=== PATIENT | female | born 1950 | race Caucasian/White ===

== ENCOUNTER 2024-01-25 20:17 | Inpatient (IN) | payer OTHER, MEDICAID ==
[~2024-01-25] VITALS: Ht 152.4 cm; Wt 113.4 kg
[2024-01-25 20:20] VITALS: BP 110/64; PULSE 84; RESP 18; TEMP 98.4; O2SAT 98
[2024-01-25] MEDS: NACL 0.9% 2,000 ML IV ONE (21:01)
[2024-01-25] MEDS ORDERED: cefTRIAXone 1,000 MG VIAL ONE (21:02)
[2024-01-25] MEDS ORDERED: ACETAMINOPHEN 650 MG SUPP RC ONE (21:16)
[2024-01-25 21:19] LABS: BASOPHILS % (AUTO) 0.2 % (0.0-2.0); EOSINOPHILS % (AUTO) 0.1 % (0.0-4.0); HEMATOCRIT 27.3 % (36-48); HEMOGLOBIN 9.2 g/dL (12.0-16.0); LYMPHOCYTES # (AUTO) 0.7 K/uL (2.5-16.5); LYMPHOCYTES % (AUTO) 3.9 % (20.5-51.1); MEAN CORPUSCULAR HEMOGLOBIN 33 pg (27-31); MEAN CORPUSCULAR HGB CONC 34 g/dL (33-37); MEAN CORPUSCULAR VOLUME 99.6 fL (80-94); MONOCYTES # (AUTO) 1.7 K/uL (0.8-1.0); MONOCYTES % (AUTO) 9.5 % (1.7-9.3); NEUTROPHILS % (AUTO) 86.3 % (42.2-75.2); PLATELET COUNT (AUTO) 74 K/uL (140-450); RED BLOOD CELL COUNT(AUTO) 2.74 MIL/uL (4.20-5.40); WHITE BLOOD COUNT (AUTO) 17.4 K/uL (4.8-10.8)
[2024-01-25] MEDS: ACETAMINOPHEN 650 MG SUPP RC ONE (21:26)
[2024-01-25 21:37] LABS: ANION GAP 8.7 (8-16); CALCIUM 7.1 mg/dL (8.5-10.1); CHLORIDE 102 mmol/L (98-107); CREATININE 1.2 mg/dL (0.6-1.3); GLUCOSE 117 mg/dL (74-106); POTASSIUM 3.7 mmol/L (3.5-5.1); SODIUM SERUM 135 mmol/L (136-145); UREA NITROGEN, BLOOD 19 mg/dL (7-18)
[2024-01-25 21:40] LABS: APPEARANCE,URINE CLEAR (CLEAR); BILIRUBIN,URINE 2+ (NEGATIVE); BLOOD, URINE 3+ (NEGATIVE); COLOR,URINE YELLOW (YELLOW); LEUKOCYTE ESTERASE ,URINE 1+ (NEGATIVE); NITRITE, URINE POSITIVE (NEGATIVE); PH,URINE 5.5 (5.0-9.0); PROTEIN,URINE TRACE (NEGATIVE); UGLUCOSE TRACE (NEGATIVE)
[2024-01-25 21:46] LABS: ICTOTEST NEGATIVE (NEGATIVE)
[2024-01-25 21:46] LABS: ALANINE AMINOTRANSFERASE 40 U/L (12-78); ALBUMIN 1.4 g/dL (3.4-5.0); ALKALINE PHOSPHATASE 137 U/L (50-136); ASPARTATE AMINOTRANSFERASE 82 U/L (15-37); BILIRUBIN,DIRECT 1.4 mg/dL (0.0-0.3); CREATINE KINASE, TOTAL 106 U/L (26-192); TOTAL BILIRUBIN 3.8 mg/dL (0.0-1.0); TOTAL PROTEIN, SERUM 5.4 g/dL (6.4-8.2)
[2024-01-25 21:48] LABS: BACTERIA,URINE >30 (MANY) /HPF (None Seen); RBC,URINE 11-20 (MOD) /HPF (0-5); SQUAMOUS EPITHELIAL CELL,UR 4-10 (MOD) /LPF (0-3 (FEW))
[2024-01-25 21:50] LABS: INR 2.27 (0.8-1.2); PARTIAL THROMBOPLASTIN TIME 38.6 secs (22-35.6); PROTHROMBIN TIME 22.9 secs (10.8-13.4)
[2024-01-25 21:55] LABS: LACTIC ACID 3.5 mmol/L (0.4-2.0)
[2024-01-25 22:05] LABS: FLU A ANTIGEN negative (NEGATIVE); FLU B ANTIGEN NEGATIVE (NEGATIVE)
[2024-01-25] MEDS: NACL 0.9% 1,000 ML IV ONE (23:07)
[2024-01-26] MEDS ORDERED: ZOLPIDEM 5 MG TAB PO PRN
[2024-01-26] MEDS ORDERED: HYDROcodone/APAP 5/325 MG 1 TAB TAB PO PRN
[2024-01-26] MEDS ORDERED: ONDANSETRON 4 MG/2 ML VIAL IVP PRN
[2024-01-26] MEDS ORDERED: LORazepam 1 MG TAB PO PRN
[2024-01-26] MEDS ORDERED: LACT-85 PO (06:02)
[2024-01-26] MEDS ORDERED: RIFA200T4 PO (06:03)
[2024-01-26] MEDS ORDERED: FURO-572 PO (06:03)
[2024-01-26] MEDS ORDERED: OXYB15TA2 PO (06:03)
[2024-01-26] MEDS ORDERED: LOSA-272 PO (06:03)
[2024-01-26] MEDS: BENZONATATE 100 MG CAPLF PO PRN (07:01)
[2024-01-26 07:06] LABS: BASOPHILS % (AUTO) 0.1 % (0.0-2.0); EOSINOPHILS % (AUTO) 0.2 % (0.0-4.0); HEMATOCRIT 28.2 % (36-48); HEMOGLOBIN 9.6 g/dL (12.0-16.0); LYMPHOCYTES # (AUTO) 0.9 K/uL (2.5-16.5); LYMPHOCYTES % (AUTO) 5.9 % (20.5-51.1); MEAN CORPUSCULAR HEMOGLOBIN 34 pg (27-31); MEAN CORPUSCULAR HGB CONC 34 g/dL (33-37); MONOCYTES # (AUTO) 1.6 K/uL (0.8-1.0); MONOCYTES % (AUTO) 11.2 % (1.7-9.3); NEUTROPHILS # (AUTO) 12.1 K/uL (1.8-7.7); NEUTROPHILS % (AUTO) 82.6 % (42.2-75.2); RED BLOOD CELL COUNT(AUTO) 2.82 MIL/uL (4.20-5.40); RED CELL DISTRIBUTION WIDTH 18.2 % (11.6-13.7); WHITE BLOOD COUNT (AUTO) 14.6 K/uL (4.8-10.8)
[2024-01-26 07:46] LABS: PLATELET COUNT (AUTO) 66 K/uL (140-450)
[2024-01-26 07:56] LABS: ALANINE AMINOTRANSFERASE 42 U/L (12-78); ALBUMIN 1.4 g/dL (3.4-5.0); ALKALINE PHOSPHATASE 137 U/L (50-136); ASPARTATE AMINOTRANSFERASE 82 U/L (15-37); CALCIUM 6.7 mg/dL (8.5-10.1); CARBON DIOXIDE 24.4 mmol/L (21-32); CHLORIDE 103 mmol/L (98-107); GLUCOSE 88 mg/dL (74-106); POTASSIUM 3.4 mmol/L (3.5-5.1); SODIUM SERUM 136 mmol/L (136-145); TOTAL BILIRUBIN 3.5 mg/dL (0.0-1.0); TOTAL PROTEIN, SERUM 5.6 g/dL (6.4-8.2); UREA NITROGEN, BLOOD 21 mg/dL (7-18)
[2024-01-26 08:00] VITALS: BP 121/58; PULSE 77; TEMP 98.2; O2SAT 96
[2024-01-26 08:10] VITALS: PULSE 97
[2024-01-26] MEDS: DOCUSATE SODIUM 100 MG GELCAP PO SCH (08:54)
[2024-01-26] MEDS ORDERED: VANCOMYCIN PER PHARMACY MC PRN ×2 (10:15→20:20)
[2024-01-26] MEDS: VANCOMYCIN 1.25GM PREMIX 250 ML IV SCH (11:52)
[2024-01-26 12:00] VITALS: BP 96/46; PULSE 74; PULSE 75; TEMP 98.3; O2SAT 91
[2024-01-26] MEDS: POTASSIUM CHLORIDE 10 MEQ TABER PO SCH (15:37)
[2024-01-26 16:00] VITALS: BP 108/48; PULSE 70; PULSE 71; TEMP 98.5; O2SAT 97
[2024-01-26 20:00] VITALS: BP 99/37; PULSE 65; PULSE 70; RESP 18; TEMP 98.2; O2SAT 97
[2024-01-27] VITALS (7 sets, daily range): BP systolic 95–112; BP diastolic 38–61; PULSE 61–69; RESP 18; TEMP 97.3–98.2; O2SAT 94–98
[2024-01-27] MEDS ORDERED: ONDANSETRON 4 MG/2 ML VIAL IVP PRN (02:45)
[2024-01-27] MEDS ORDERED: ACETAMINOPHEN 325 MG TAB PO PRN (02:45)
[2024-01-27] MEDS: NACL 0.9% 1,000 ML IV SCH (03:43)
[2024-01-27] MEDS: LACTULOSE 20 GM/30 ML UDC PO SCH (04:25)
[2024-01-27 06:06] LABS: INR 1.99 (0.8-1.2); PARTIAL THROMBOPLASTIN TIME 39.7 secs (22-35.6); PROTHROMBIN TIME 20.3 secs (10.8-13.4)
[2024-01-27 06:08] LABS: HEMATOCRIT 27.1 % (36-48); HEMOGLOBIN 9.3 g/dL (12.0-16.0); LACTIC ACID 1.4 mmol/L (0.4-2.0); MEAN CORPUSCULAR HEMOGLOBIN 34 pg (27-31); MEAN CORPUSCULAR HGB CONC 34 g/dL (33-37); MEAN CORPUSCULAR VOLUME 99.4 fL (80-94); PLATELET COUNT (AUTO) 70 K/uL (140-450); RED BLOOD CELL COUNT(AUTO) 2.73 MIL/uL (4.20-5.40); RED CELL DISTRIBUTION WIDTH 17.8 % (11.6-13.7); WHITE BLOOD COUNT (AUTO) 11.9 K/uL (4.8-10.8)
[2024-01-27] MEDS: HYDROcodone/APAP 7.5/325 MG 1 TAB PO PRN (06:24)
[2024-01-27 06:58] LABS: ALKALINE PHOSPHATASE 125 U/L (50-136); ANION GAP 10.7 (8-16); CALCIUM 6.7 mg/dL (8.5-10.1); CARBON DIOXIDE 26.2 mmol/L (21-32); CHLORIDE 99 mmol/L (98-107); CREATININE 0.8 mg/dL (0.6-1.3); GLUCOSE 75 mg/dL (74-106); POTASSIUM 3.9 mmol/L (3.5-5.1); SODIUM SERUM 132 mmol/L (136-145); TOTAL BILIRUBIN 2.9 mg/dL (0.0-1.0); UREA NITROGEN, BLOOD 24 mg/dL (7-18)
[2024-01-27 06:59] LABS: ALANINE AMINOTRANSFERASE 33 U/L (12-78); ALBUMIN 1.2 g/dL (3.4-5.0); ASPARTATE AMINOTRANSFERASE 66 U/L (15-37); TOTAL PROTEIN, SERUM 5.5 g/dL (6.4-8.2)
[2024-01-27 07:00] LABS: CHOL/HDL RATIO 4.2 (1-4.5); CHOLESTEROL 75 mg/dL (<200); HDL CHOLESTEROL 18 mg/dL (40-60); LDL (CALC) 48 mg/dL (60-100); PHOSPHORUS 2.2 mg/dL (2.5-4.9); TRIGLYCERIDES 49 mg/dL (30-150)
[2024-01-27 07:01] LABS: FREE T4 (FREE THYROXINE) 1.85 ng/dL (0.76-1.46); THYROID STIMULATING HORMONE 2.28 uIU/mL (0.34-3.74)
[2024-01-27 07:45] LABS: AMYLASE 26 U/L (25-115); LIPASE 37 U/L (16-77)
[2024-01-27 07:50] LABS: LYMPHOCYTES % (MANUAL) 9 % (20-46); MONOCYTES % (MANUAL) 10 % (5-12)
[2024-01-27 07:51] LABS: PLATELET ESTIMATE DECREASED
[2024-01-27] MEDS: DOCUSATE SODIUM 100 MG GELCAP PO SCH (09:00)
[2024-01-27] MEDS: OXYBUTYNIN 5 MG TAB PO SCH (09:00)
[2024-01-27] MEDS: PANTOPRAZOLE 40 MG INJ VIAL IVP SCH (09:00)
[2024-01-27] MEDS: LOSARTAN 50 MG TAB PO SCH (09:00)
[2024-01-27] MEDS: FUROSEMIDE 20 MG TAB PO SCH (09:00)
[2024-01-27] MEDS: RIFAXIMIN 550 MG TAB PO SCH (09:00)
[2024-01-28 05:09] VITALS: BP 102/44; PULSE 85; RESP 18; TEMP 97.5; O2SAT 98
[2024-01-28 08:00] VITALS: BP 112/49; PULSE 64; RESP 18; TEMP 97; O2SAT 100
[2024-01-28] MEDS: VANCOMYCIN 1,000 MG in DEXTROSE 5% 250 ML IV SCH (09:43)
[2024-01-28 11:47] LABS: BASOPHILS # (AUTO) 0.1 K/uL (0.00-0.22); BASOPHILS % (AUTO) 0.4 % (0.0-2.0); EOSINOPHILS # (AUTO) 0.6 K/uL (0-0.4); EOSINOPHILS % (AUTO) 4.8 % (0.0-4.0); HEMATOCRIT 28.1 % (36-48); HEMOGLOBIN 9.6 g/dL (12.0-16.0); LYMPHOCYTES # (AUTO) 1.6 K/uL (2.5-16.5); LYMPHOCYTES % (AUTO) 13.1 % (20.5-51.1); MEAN CORPUSCULAR HEMOGLOBIN 34 pg (27-31); MEAN CORPUSCULAR HGB CONC 34 g/dL (33-37); MEAN CORPUSCULAR VOLUME 100.1 fL (80-94); MONOCYTES # (AUTO) 1.2 K/uL (0.8-1.0); MONOCYTES % (AUTO) 9.8 % (1.7-9.3); NEUTROPHILS % (AUTO) 71.9 % (42.2-75.2); PLATELET COUNT (AUTO) 77 K/uL (140-450); RED CELL DISTRIBUTION WIDTH 17.7 % (11.6-13.7); WHITE BLOOD COUNT (AUTO) 12.4 K/uL (4.8-10.8)
[2024-01-28 12:00] VITALS: BP 112/49; PULSE 64; RESP 18; TEMP 97; O2SAT 100
[2024-01-28 12:15] LABS: ALANINE AMINOTRANSFERASE 31 U/L (12-78); ALBUMIN 1.2 g/dL (3.4-5.0); ALKALINE PHOSPHATASE 128 U/L (50-136); ANION GAP 8.8 (8-16); ASPARTATE AMINOTRANSFERASE 59 U/L (15-37); CALCIUM 6.5 mg/dL (8.5-10.1); CARBON DIOXIDE 26.9 mmol/L (21-32); CHLORIDE 101 mmol/L (98-107); CREATININE 0.7 mg/dL (0.6-1.3); GLUCOSE 98 mg/dL (74-106); POTASSIUM 3.7 mmol/L (3.5-5.1); SODIUM SERUM 133 mmol/L (136-145); TOTAL BILIRUBIN 3.1 mg/dL (0.0-1.0); TOTAL PROTEIN, SERUM 5.4 g/dL (6.4-8.2); UREA NITROGEN, BLOOD 18 mg/dL (7-18)
[2024-01-28 12:17] LABS: ALBUMIN 1.2 g/dL (3.4-5.0); TOTAL BILIRUBIN 3.5 mg/dL (0.0-1.0); TOTAL PROTEIN, SERUM 5.4 g/dL (6.4-8.2)
[2024-01-28 15:26] VITALS: O2SAT 93
[2024-01-28 16:30] VITALS: BP 113/48; PULSE 67; RESP 18; TEMP 98.5; O2SAT 100
[2024-01-28 20:00] VITALS: BP 111/46; PULSE 68; RESP 21; TEMP 97.8; O2SAT 97
[2024-01-29 08:00] VITALS: BP 115/50; PULSE 71; RESP 21; TEMP 97; O2SAT 97
[2024-01-29] MEDS ORDERED: WOUND CARE PREPARATION 178 ML SPR TP PRN (11:05)
[2024-01-29] MEDS: Z-GUARD PASTE TP SCH (13:11)
[2024-01-29] MEDS ORDERED: HYDRAGUARD CREAM TP PRN (14:00)
[2024-01-29] MEDS ORDERED: FOAM DRESSING TP PRN (14:00)
[2024-01-29] MEDS ORDERED: NON ADHERENT DRESSING TP PRN (14:00)
[2024-01-29 16:52] VITALS: O2SAT 94
[2024-01-29 20:00] VITALS: BP 94/40; RESP 21; TEMP 97.8; O2SAT 96
[2024-01-29 20:42] LABS: ALANINE AMINOTRANSFERASE 39 U/L (12-78); ALBUMIN 1.2 g/dL (3.4-5.0); ALKALINE PHOSPHATASE 157 U/L (50-136); ANION GAP 9.9 (8-16); ASPARTATE AMINOTRANSFERASE 65 U/L (15-37); CALCIUM 6.7 mg/dL (8.5-10.1); CARBON DIOXIDE 24.8 mmol/L (21-32); CHLORIDE 101 mmol/L (98-107); CREATININE 0.7 mg/dL (0.6-1.3); GLUCOSE 92 mg/dL (74-106); POTASSIUM 3.7 mmol/L (3.5-5.1); SODIUM SERUM 132 mmol/L (136-145); TOTAL BILIRUBIN 3.1 mg/dL (0.0-1.0); TOTAL PROTEIN, SERUM 5.7 g/dL (6.4-8.2); UREA NITROGEN, BLOOD 14 mg/dL (7-18)
[2024-01-29] MEDS: metroNIDAZOLE 500 MG/NS PREMIX 100 ML IV SCH (21:30)
[2024-01-30] MEDS: HYDRAGUARD CREAM TP SCH (02:00)
[2024-01-30 08:00] VITALS: BP 97/37; RESP 15; TEMP 97.8; O2SAT 65
[2024-01-30 09:46] LABS: BASOPHILS # (AUTO) 0.1 K/uL (0.00-0.22); BASOPHILS % (AUTO) 0.9 % (0.0-2.0); EOSINOPHILS # (AUTO) 0.6 K/uL (0-0.4); HEMATOCRIT 28.9 % (36-48); LYMPHOCYTES # (AUTO) 1.6 K/uL (2.5-16.5); LYMPHOCYTES % (AUTO) 15.5 % (20.5-51.1); MEAN CORPUSCULAR HEMOGLOBIN 35 pg (27-31); MEAN CORPUSCULAR HGB CONC 35 g/dL (33-37); MEAN CORPUSCULAR VOLUME 101.1 fL (80-94); MONOCYTES # (AUTO) 1.1 K/uL (0.8-1.0); MONOCYTES % (AUTO) 10.2 % (1.7-9.3); NEUTROPHILS % (AUTO) 67.4 % (42.2-75.2); PLATELET COUNT (AUTO) 73 K/uL (140-450); RED BLOOD CELL COUNT(AUTO) 2.86 MIL/uL (4.20-5.40); RED CELL DISTRIBUTION WIDTH 17.9 % (11.6-13.7); WHITE BLOOD COUNT (AUTO) 10.4 K/uL (4.8-10.8)
[2024-01-30 10:54] LABS: ALANINE AMINOTRANSFERASE 25 U/L (12-78); ALBUMIN 1.1 g/dL (3.4-5.0); ALKALINE PHOSPHATASE 148 U/L (50-136); ANION GAP 6.2 (8-16); ASPARTATE AMINOTRANSFERASE 59 U/L (15-37); CALCIUM 6.8 mg/dL (8.5-10.1); CARBON DIOXIDE 27.5 mmol/L (21-32); CHLORIDE 103 mmol/L (98-107); CREATININE 0.7 mg/dL (0.6-1.3); GLUCOSE 73 mg/dL (74-106); POTASSIUM 3.7 mmol/L (3.5-5.1); SODIUM SERUM 133 mmol/L (136-145); TOTAL BILIRUBIN 2.3 mg/dL (0.0-1.0); TOTAL PROTEIN, SERUM 5.2 g/dL (6.4-8.2); UREA NITROGEN, BLOOD 13 mg/dL (7-18)
[2024-01-30] MEDS: FOAM DRESSING TP SCH (13:00)
[2024-01-30] MEDS: NON ADHERENT DRESSING TP SCH (13:00)
[2024-01-30] MEDS: NACL 0.9% 1,000 ML IV SCH (15:50)
[2024-01-30] MEDS ORDERED: NACL 0.9% 2,000 ML IV SCH (15:50)
[2024-01-30 20:00] VITALS: BP 128/49; PULSE 68; RESP 18; TEMP 97.4; TEMP 97.8; O2SAT 98
[2024-01-31 04:00] VITALS: BP 127/49; PULSE 70; RESP 18; TEMP 97.2; O2SAT 97
[2024-01-31 08:00] VITALS: BP 101/41; PULSE 69; RESP 18; TEMP 98; O2SAT 96
[2024-01-31 08:24] LABS: BASOPHILS # (AUTO) 0.1 K/uL (0.00-0.22); EOSINOPHILS # (AUTO) 0.5 K/uL (0-0.4); EOSINOPHILS % (AUTO) 6.2 % (0.0-4.0); HEMATOCRIT 28.6 % (36-48); HEMOGLOBIN 9.8 g/dL (12.0-16.0); LYMPHOCYTES # (AUTO) 1.3 K/uL (2.5-16.5); LYMPHOCYTES % (AUTO) 16.4 % (20.5-51.1); MEAN CORPUSCULAR HEMOGLOBIN 35 pg (27-31); MEAN CORPUSCULAR HGB CONC 34 g/dL (33-37); MEAN CORPUSCULAR VOLUME 101.7 fL (80-94); MONOCYTES % (AUTO) 12.1 % (1.7-9.3); NEUTROPHILS # (AUTO) 5.3 K/uL (1.8-7.7); NEUTROPHILS % (AUTO) 64.3 % (42.2-75.2); PLATELET COUNT (AUTO) 90 K/uL (140-450); RED BLOOD CELL COUNT(AUTO) 2.81 MIL/uL (4.20-5.40); WHITE BLOOD COUNT (AUTO) 8.2 K/uL (4.8-10.8)
[2024-01-31 08:45] LABS: ALANINE AMINOTRANSFERASE 26 U/L (12-78); ALBUMIN 1.1 g/dL (3.4-5.0); ALKALINE PHOSPHATASE 144 U/L (50-136); ANION GAP 10.2 (8-16); ASPARTATE AMINOTRANSFERASE 55 U/L (15-37); CALCIUM 6.5 mg/dL (8.5-10.1); CARBON DIOXIDE 24.4 mmol/L (21-32); CHLORIDE 105 mmol/L (98-107); CREATININE 0.6 mg/dL (0.6-1.3); GLUCOSE 77 mg/dL (74-106); POTASSIUM 3.6 mmol/L (3.5-5.1); SODIUM SERUM 136 mmol/L (136-145); TOTAL BILIRUBIN 2.4 mg/dL (0.0-1.0); TOTAL PROTEIN, SERUM 5.3 g/dL (6.4-8.2); UREA NITROGEN, BLOOD 11 mg/dL (7-18)
[2024-01-31] MEDS: MORPHINE SULFATE 2 MG/ML SYR IVP PRN (16:01)
[2024-01-31] MEDS: FUROSEMIDE 40 MG/4 ML VIAL IVP ONE ×3 (16:20→20:37)
[2024-01-31 20:00] VITALS: BP 115/51; PULSE 76; RESP 18; TEMP 98.2; O2SAT 95
[2024-01-31 20:22] VITALS: PULSE 76; RESP 18; O2SAT 96
[2024-01-31 20:26] VITALS: TEMP 98
[2024-01-31] MEDS: RIFAXIMIN 550 MG TAB PO SCH (20:36)
[2024-02-01] VITALS: BP 107/40; PULSE 66; RESP 18; TEMP 97.8; O2SAT 95
[2024-02-01 06:46] LABS: BASOPHILS # (AUTO) 0.2 K/uL (0.00-0.22); BASOPHILS % (AUTO) 2.3 % (0.0-2.0); EOSINOPHILS # (AUTO) 0.5 K/uL (0-0.4); HEMATOCRIT 26.8 % (36-48); HEMOGLOBIN 9.2 g/dL (12.0-16.0); LYMPHOCYTES # (AUTO) 1.3 K/uL (2.5-16.5); LYMPHOCYTES % (AUTO) 18.2 % (20.5-51.1); MEAN CORPUSCULAR HEMOGLOBIN 35 pg (27-31); MEAN CORPUSCULAR HGB CONC 34 g/dL (33-37); MEAN CORPUSCULAR VOLUME 101.7 fL (80-94); MONOCYTES # (AUTO) 0.9 K/uL (0.8-1.0); MONOCYTES % (AUTO) 12.6 % (1.7-9.3); NEUTROPHILS # (AUTO) 4.3 K/uL (1.8-7.7); NEUTROPHILS % (AUTO) 59.9 % (42.2-75.2); PLATELET COUNT (AUTO) 108 K/uL (140-450); RED BLOOD CELL COUNT(AUTO) 2.63 MIL/uL (4.20-5.40); RED CELL DISTRIBUTION WIDTH 17.7 % (11.6-13.7); WHITE BLOOD COUNT (AUTO) 7.2 K/uL (4.8-10.8)
[2024-02-01 07:16] LABS: ALANINE AMINOTRANSFERASE 26 U/L (12-78); ALBUMIN 1.1 g/dL (3.4-5.0); ALKALINE PHOSPHATASE 130 U/L (50-136); ANION GAP 10.8 (8-16); ASPARTATE AMINOTRANSFERASE 56 U/L (15-37); CALCIUM 6.5 mg/dL (8.5-10.1); CARBON DIOXIDE 24.8 mmol/L (21-32); CHLORIDE 103 mmol/L (98-107); CREATININE 0.6 mg/dL (0.6-1.3); GLUCOSE 84 mg/dL (74-106); POTASSIUM 3.6 mmol/L (3.5-5.1); SODIUM SERUM 135 mmol/L (136-145); TOTAL BILIRUBIN 2.4 mg/dL (0.0-1.0); TOTAL PROTEIN, SERUM 5.3 g/dL (6.4-8.2); UREA NITROGEN, BLOOD 11 mg/dL (7-18)
[2024-02-01 08:00] VITALS: BP 113/49; PULSE 69; PULSE 72; RESP 18; TEMP 98; TEMP 98.8; O2SAT 96; O2SAT 98
[2024-02-01] MEDS ORDERED: ROC2I IV (12:46)
[2024-02-01 16:00] VITALS: BP 97/41; PULSE 18; RESP 18; TEMP 98; O2SAT 97
[2024-02-01 17:51] VITALS: BP 97/52; PULSE 72; RESP 18; TEMP 98.6
== END 2024-02-01 19:10 | DRG 871 ==
LOC: MED 20:17 → MTU 01-26
DX: A40.1 Sepsis due to streptococcus, group B (principal); E43 Unspecified severe protein-calorie malnutrition; G93.41 Metabolic encephalopathy; J18.9 Pneumonia, unspecified organism; I50.43 Acute on chronic combined systolic (congestive) and diastolic (congestive) heart failure; I21.A1 Myocardial infarction type 2; N39.0 Urinary tract infection, site not specified; Z68.42 Body mass index [BMI] 45.0-49.9, adult; I11.0 Hypertensive heart disease with heart failure; D69.6 Thrombocytopenia, unspecified; Z20.822 Contact with and (suspected) exposure to COVID-19; F03.90 Unspecified dementia, unspecified severity, without behavioral disturbance, psychotic disturbance, mood disturbance, and anxiety; E66.9 Obesity, unspecified; K74.60 Unspecified cirrhosis of liver; Z79.899 Other long term (current) drug therapy; D63.8 Anemia in other chronic diseases classified elsewhere
CPT/HCPCS: 36415; 71045; 76700; 76770; 78223; 78445; 80048; 80053; 80076; 80202; 81001; 82140; 82150; 82550; 83036; 83605; 83690; 83735; 83880; 84100; 84439; 84443; 84484; 85025; 85610; 85730; 87040; 87081; 87086; 87186; 93005; 96374; 97110; 97112; 97530; 99285; C9113; J0696; J1940; J2270; J3370; J3372; J3490; J7060; Q0092

== ENCOUNTER 2024-02-23 15:39 | Inpatient (IN) | payer OTHER, MEDICAID ==
[~2024-02-23] VITALS: Ht 157.5 cm; Wt 98.2 kg
[~2024-02-23 15:39] MED LIST: FURO-572 PO; LACT-85 PO; LOSA-272 PO; OXYB15TA2 PO; RIFA200T4 PO; ROC2I IV
[2024-02-23 16:04] VITALS: BP 112/63; PULSE 75; RESP 18; TEMP 98.3; O2SAT 100
[2024-02-23 16:35] VITALS: O2SAT 96
[2024-02-23 17:12] LABS: BASOPHILS % (AUTO) 0.2 % (0.0-2.0); EOSINOPHILS # (AUTO) 0.4 K/uL (0-0.4); EOSINOPHILS % (AUTO) 5.5 % (0.0-4.0); HEMATOCRIT 29.1 % (36-48); HEMOGLOBIN 9.8 g/dL (12.0-16.0); LYMPHOCYTES # (AUTO) 1.6 K/uL (2.5-16.5); LYMPHOCYTES % (AUTO) 19.3 % (20.5-51.1); MEAN CORPUSCULAR HEMOGLOBIN 36 pg (27-31); MEAN CORPUSCULAR HGB CONC 34 g/dL (33-37); MONOCYTES # (AUTO) 0.7 K/uL (0.8-1.0); MONOCYTES % (AUTO) 8.8 % (1.7-9.3); NEUTROPHILS # (AUTO) 5.4 K/uL (1.8-7.7); NEUTROPHILS % (AUTO) 66.2 % (42.2-75.2); PLATELET COUNT (AUTO) 86 K/uL (140-450); RED CELL DISTRIBUTION WIDTH 22.3 % (11.6-13.7); WHITE BLOOD COUNT (AUTO) 8.2 K/uL (4.8-10.8)
[2024-02-23 17:28] LABS: INR 2.16 (0.8-1.2); PARTIAL THROMBOPLASTIN TIME 37.9 secs (22-35.6); PROTHROMBIN TIME 21.8 secs (10.8-13.4)
[2024-02-23 17:38] LABS: ANION GAP 7.7 (8-16); CALCIUM 7.6 mg/dL (8.5-10.1); CARBON DIOXIDE 29.7 mmol/L (21-32); CHLORIDE 107 mmol/L (98-107); CREATININE 0.6 mg/dL (0.6-1.3); GLUCOSE 84 mg/dL (74-106); POTASSIUM 3.4 mmol/L (3.5-5.1); SODIUM SERUM 141 mmol/L (136-145); UREA NITROGEN, BLOOD 9 mg/dL (7-18)
[2024-02-23 17:40] LABS: LACTIC ACID 2.1 mmol/L (0.4-2.0)
[2024-02-23 17:41] LABS: ALANINE AMINOTRANSFERASE 25 U/L (12-78); ALBUMIN 1.2 g/dL (3.4-5.0); ALKALINE PHOSPHATASE 160 U/L (50-136); ASPARTATE AMINOTRANSFERASE 63 U/L (15-37); BILIRUBIN,DIRECT 1.7 mg/dL (0.0-0.3); CREATINE KINASE, TOTAL 74 U/L (26-192); LIPASE 41 U/L (16-77); TOTAL BILIRUBIN 4.9 mg/dL (0.0-1.0); TOTAL PROTEIN, SERUM 6.5 g/dL (6.4-8.2)
[2024-02-23] MEDS: PIPERACILLIN/TAZOBACTAM 3.375 GM in DEXTROSE 5% 50 ML IV ONE (18:30)
[2024-02-23 18:34] VITALS: O2SAT 96
[2024-02-23] MEDS ORDERED: PIPERACILLIN/TAZOBACTAM 3.375 GM VIAL IV ONE (18:37)
[2024-02-23 19:38] LABS: BILIRUBIN,URINE 2+ (NEGATIVE); BLOOD, URINE 3+ (NEGATIVE); COLOR,URINE YELLOW (YELLOW); LEUKOCYTE ESTERASE ,URINE 3+ (NEGATIVE); NITRITE, URINE POSITIVE (NEGATIVE); PROTEIN,URINE 2+ (NEGATIVE); UGLUCOSE TRACE (NEGATIVE); UROBILINOGEN,URINE >=8.0 EU/dL (0.2 - 1)
[2024-02-23 19:41] LABS: APPEARANCE,URINE SLIGHTLY CLOUDY (CLEAR)
[2024-02-23 19:48] LABS: BACTERIA,URINE 3+ /HPF (None Seen); ICTOTEST POSITIVE (NEGATIVE); RBC,URINE 20-50 /HPF (0-5); SQUAMOUS EPITHELIAL CELL,UR 4-10 (MOD) /LPF (0-3 (FEW)); WBC,URINE 16-25 (MOD) /HPF (0-5)
[2024-02-23 19:49] LABS: MUCUS,URINE None Seen /LPF (None Seen)
[2024-02-23] MEDS: NACL 0.9% 1,000 ML IV SCH (23:05)
[2024-02-23] MEDS: PIPERACILLIN/TAZOBACTAM 2.25 GM in DEXTROSE 5% 50 ML IV SCH (23:06)
[2024-02-24] VITALS (11 sets, daily range): BP systolic 106–148; BP diastolic 40–71; PULSE 70–83; RESP 18–22; TEMP 97.2–98; O2SAT 94–100
[2024-02-24 06:36] LABS: HEMATOCRIT 26.4 % (36-48); HEMOGLOBIN 9.1 g/dL (12.0-16.0); MEAN CORPUSCULAR HEMOGLOBIN 37 pg (27-31); MEAN CORPUSCULAR HGB CONC 35 g/dL (33-37); MEAN CORPUSCULAR VOLUME 107.4 fL (80-94); PLATELET COUNT (AUTO) 75 K/uL (140-450); RED BLOOD CELL COUNT(AUTO) 2.46 MIL/uL (4.20-5.40); RED CELL DISTRIBUTION WIDTH 22.3 % (11.6-13.7); WHITE BLOOD COUNT (AUTO) 7.6 K/uL (4.8-10.8)
[2024-02-24 06:56] LABS: ANION GAP 7.6 (8-16); CALCIUM 7.3 mg/dL (8.5-10.1); CARBON DIOXIDE 30.5 mmol/L (21-32); CHLORIDE 108 mmol/L (98-107); CREATININE 0.7 mg/dL (0.6-1.3); GLUCOSE 63 mg/dL (74-106); POTASSIUM 3.1 mmol/L (3.5-5.1); SODIUM SERUM 143 mmol/L (136-145); UREA NITROGEN, BLOOD 10 mg/dL (7-18)
[2024-02-24 08:28] LABS: BASOPHILS % (MANUAL) 0 % (0-2); EOSINOPHILS % (MANUAL) 6 % (0-4); LYMPHOCYTES % (MANUAL) 17 % (20-46); METAMYELOCYTES % 0 % (0-0); MONOCYTES % (MANUAL) 11 % (5-12); MYELOCYTES % 0 % (0-0); PROMYELOCYTES % 0 % (0-0)
[2024-02-24 08:29] LABS: BLASTS, MANUAL % 0 % (0-0)
[2024-02-24] MEDS: KCL 20 MEQ IN 100 mL PREMIX 200 ML IV ONE (10:41)
[2024-02-24] MEDS: PIPERACILLIN/TAZOBACTAM 3.375 GM in DEXTROSE 5% 50 ML IV SCH (14:53)
[2024-02-24] MEDS: NACL 0.9% 1,000 ML IV SCH (16:30)
[2024-02-24] MEDS ORDERED: MAG SULF 2000 MG/WATER PREMIX 50 ML IV PRN (16:30)
[2024-02-24] MEDS ORDERED: HYDROcodone/APAP 7.5/325 MG 1 TAB PO PRN (16:30)
[2024-02-24] MEDS ORDERED: ACETAMINOPHEN 325 MG TAB PO PRN (16:30)
[2024-02-24] MEDS ORDERED: ONDANSETRON 4 MG/2 ML VIAL IVP PRN (16:30)
[2024-02-24] MEDS ORDERED: POTASSIUM CHLORIDE 10 MEQ TABER PO PRN (16:30)
[2024-02-24 19:25] LABS: CHOL/HDL RATIO 3.9 (1-4.5); FREE T4 (FREE THYROXINE) 0.89 ng/dL (0.76-1.46); MAGNESIUM 1.9 mg/dL (1.8-2.4); PHOSPHORUS 3.6 mg/dL (2.5-4.9); THYROID STIMULATING HORMONE 8.35 uIU/mL (0.34-3.74)
[2024-02-24] MEDS ORDERED: RIFAXIMIN 550 MG PO SCH (21:00)
[2024-02-25] VITALS: BP 109/40; PULSE 82; RESP 19; TEMP 97.4; O2SAT 97
[2024-02-25] MEDS: LACTULOSE 20 GM/30 ML UDC PO SCH (00:54)
[2024-02-25] MEDS: RIFAXIMIN 550 MG TAB PO SCH (00:55)
[2024-02-25] MEDS: DOCUSATE SODIUM 100 MG GELCAP PO SCH (00:55)
[2024-02-25 04:00] VITALS: BP 130/53; PULSE 77; RESP 19; TEMP 97.3; O2SAT 100
[2024-02-25 06:13] LABS: BASOPHILS # (AUTO) 0.1 K/uL (0.00-0.22); BASOPHILS % (AUTO) 0.7 % (0.0-2.0); EOSINOPHILS # (AUTO) 0.2 K/uL (0-0.4); EOSINOPHILS % (AUTO) 2.7 % (0.0-4.0); HEMATOCRIT 27.7 % (36-48); HEMOGLOBIN 9.4 g/dL (12.0-16.0); LYMPHOCYTES # (AUTO) 1.7 K/uL (2.5-16.5); LYMPHOCYTES % (AUTO) 18.5 % (20.5-51.1); MEAN CORPUSCULAR HEMOGLOBIN 36 pg (27-31); MEAN CORPUSCULAR HGB CONC 34 g/dL (33-37); MEAN CORPUSCULAR VOLUME 107.3 fL (80-94); MONOCYTES # (AUTO) 0.9 K/uL (0.8-1.0); MONOCYTES % (AUTO) 9.8 % (1.7-9.3); NEUTROPHILS # (AUTO) 6.1 K/uL (1.8-7.7); NEUTROPHILS % (AUTO) 68.3 % (42.2-75.2); PLATELET COUNT (AUTO) 85 K/uL (140-450); RED BLOOD CELL COUNT(AUTO) 2.58 MIL/uL (4.20-5.40); RED CELL DISTRIBUTION WIDTH 22.5 % (11.6-13.7); WHITE BLOOD COUNT (AUTO) 8.9 K/uL (4.8-10.8)
[2024-02-25 06:23] LABS: ANION GAP 9.4 (8-16); CALCIUM 7.5 mg/dL (8.5-10.1); CARBON DIOXIDE 27.9 mmol/L (21-32); CHLORIDE 109 mmol/L (98-107); CREATININE 0.7 mg/dL (0.6-1.3); GLUCOSE 53 mg/dL (74-106); POTASSIUM 3.3 mmol/L (3.5-5.1); SODIUM SERUM 143 mmol/L (136-145); UREA NITROGEN, BLOOD 11 mg/dL (7-18)
[2024-02-25 06:41] LABS: MAGNESIUM 1.8 mg/dL (1.8-2.4); PHOSPHORUS 3.7 mg/dL (2.5-4.9)
[2024-02-25 07:11] LABS: INR 2.38 (0.8-1.2); PARTIAL THROMBOPLASTIN TIME 43.7 secs (22-35.6); PROTHROMBIN TIME 23.9 secs (10.8-13.4)
[2024-02-25 07:56] LABS: LACTIC ACID 2.5 mmol/L (0.4-2.0)
[2024-02-25 08:00] VITALS: BP 138/45; PULSE 79; RESP 18; TEMP 99; O2SAT 94; O2SAT 95
[2024-02-25] MEDS: PANTOPRAZOLE 40 MG INJ VIAL IVP SCH (08:14)
[2024-02-25] MEDS: FUROSEMIDE 20 MG TAB PO SCH (08:15)
[2024-02-25] MEDS: PIPERACILLIN/TAZOBACTAM 2.25 GM VIAL IV ONE (08:15)
[2024-02-25 12:00] VITALS: BP 123/49; PULSE 80; RESP 18; TEMP 97.2; O2SAT 94
[2024-02-25] MEDS ORDERED: POTASSIUM CHLORIDE 10 MEQ TABER PO PRN (12:30)
[2024-02-25] MEDS ORDERED: MAG SULF 2000 MG/WATER PREMIX 50 ML IV PRN (12:30)
[2024-02-25] MEDS: POTASSIUM CHL 40 MEQ/ D5-1/2NS 1,000 ML IV SCH (14:31)
[2024-02-25] MEDS: DEXTROSE 50% 50 ML SYR IVP PRN (14:44)
[2024-02-25 16:00] VITALS: BP 115/45; PULSE 77; PULSE 80; RESP 18; TEMP 97.1; O2SAT 94
[2024-02-25 17:10] LABS: BLOOD GAS PCO2 31.8 mmHg (35-45); BLOOD GAS PO2 78.5 mmHg (75-100)
[2024-02-25 17:11] LABS: BLOOD GAS BASE EXCESS 6.4 mmol/L (-2.0-2.0); BLOOD GAS HCO3 28.5 mmol/L (22-26)
[2024-02-25 17:12] LABS: BLOOD GAS O2 SAT% 95.9 % (92.0-98.5)
[2024-02-25 17:13] LABS: FRACTIONATED INSPIRED OXYGEN 0.21 % (0.21-100.00)
[2024-02-25 20:00] VITALS: BP 113/41; PULSE 80; RESP 17; TEMP 98; O2SAT 100; O2SAT 95
[2024-02-25] MEDS: SENNA 8.6 MG TAB PO SCH (21:00)
[2024-02-26] MEDS: FUROSEMIDE 20 MG/2 ML VIAL IVP SCH (00:41)
[2024-02-26] MEDS: LACTULOSE 20 GM/30 ML UDC PO SCH ×2 (00:42→21:18)
[2024-02-26] MEDS ORDERED: DEXTROSE 50% 50 ML SYR IVP PRN (01:55)
[2024-02-26] MEDS ORDERED: INSULIN LISPRO SLIDING SCALE 100 UNITS/ML VIAL SUBQ PRN (01:55)
[2024-02-26] MEDS: DEXT 5% / NACL 0.9% 500 ML IV SCH (01:55)
[2024-02-26 04:00] VITALS: BP 93/42; PULSE 72; RESP 17; TEMP 96.6; O2SAT 96
[2024-02-26] MEDS: LEVOTHYROXINE 0.1 MG TAB PO SCH (06:30)
[2024-02-26] MEDS: BLOOD GLUCOSE MONITORING 1 DEV DEV FS SCH (07:00)
[2024-02-26 08:00] VITALS: BP 100/36; PULSE 66; RESP 17; TEMP 35.9; O2SAT 100; O2SAT 95
[2024-02-26 09:10] LABS: BASOPHILS # (AUTO) 0.1 K/uL (0.00-0.22); BASOPHILS % (AUTO) 0.8 % (0.0-2.0); EOSINOPHILS # (AUTO) 0.4 K/uL (0-0.4); EOSINOPHILS % (AUTO) 5.1 % (0.0-4.0); HEMATOCRIT 25.3 % (36-48); HEMOGLOBIN 8.7 g/dL (12.0-16.0); LYMPHOCYTES # (AUTO) 1.4 K/uL (2.5-16.5); MEAN CORPUSCULAR HEMOGLOBIN 37 pg (27-31); MEAN CORPUSCULAR HGB CONC 34 g/dL (33-37); MONOCYTES # (AUTO) 0.9 K/uL (0.8-1.0); MONOCYTES % (AUTO) 11.8 % (1.7-9.3); NEUTROPHILS # (AUTO) 4.8 K/uL (1.8-7.7); NEUTROPHILS % (AUTO) 63.3 % (42.2-75.2); PLATELET COUNT (AUTO) 89 K/uL (140-450); RED BLOOD CELL COUNT(AUTO) 2.34 MIL/uL (4.20-5.40); RED CELL DISTRIBUTION WIDTH 22.1 % (11.6-13.7); WHITE BLOOD COUNT (AUTO) 7.5 K/uL (4.8-10.8)
[2024-02-26 10:13] LABS: ANION GAP 9.4 (8-16); CALCIUM 7.4 mg/dL (8.5-10.1); CARBON DIOXIDE 28.5 mmol/L (21-32); CHLORIDE 109 mmol/L (98-107); CREATININE 0.8 mg/dL (0.6-1.3); GLUCOSE 101 mg/dL (74-106); SODIUM SERUM 144 mmol/L (136-145); UREA NITROGEN, BLOOD 11 mg/dL (7-18)
[2024-02-26 10:16] LABS: POTASSIUM 2.9 mmol/L (3.5-5.1)
[2024-02-26 10:24] LABS: MAGNESIUM 1.8 mg/dL (1.8-2.4); PHOSPHORUS 3.2 mg/dL (2.5-4.9)
[2024-02-26 10:33] LABS: LACTIC ACID 2.2 mmol/L (0.4-2.0)
[2024-02-26 12:00] VITALS: BP 114/56; PULSE 66; PULSE 70; RESP 18; TEMP 97.1; O2SAT 98
[2024-02-26] MEDS: POTASSIUM CHLORIDE 40 MEQ, LIDOCAINE 1% 25 MG in NACL 0.9% 250 ML IV SCH (12:47)
[2024-02-26 16:00] VITALS: BP 147/64; PULSE 66; RESP 18; TEMP 97.8; TEMP 99; O2SAT 98
[2024-02-26 17:27] LABS: ALANINE AMINOTRANSFERASE 17 U/L (12-78); ALBUMIN 1.2 g/dL (3.4-5.0); ALKALINE PHOSPHATASE 121 U/L (50-136); ANION GAP 8.3 (8-16); ASPARTATE AMINOTRANSFERASE 46 U/L (15-37); CALCIUM 7.2 mg/dL (8.5-10.1); CHLORIDE 110 mmol/L (98-107); CREATININE 0.8 mg/dL (0.6-1.3); GLUCOSE 107 mg/dL (74-106); POTASSIUM 3.3 mmol/L (3.5-5.1); SODIUM SERUM 144 mmol/L (136-145); TOTAL PROTEIN, SERUM 5.9 g/dL (6.4-8.2); UREA NITROGEN, BLOOD 12 mg/dL (7-18)
[2024-02-26 20:00] VITALS: BP 118/55; PULSE 69; RESP 17; RESP 18; TEMP 98.1; O2SAT 100; O2SAT 97
[2024-02-26] MEDS ORDERED: LACTULOSE 20 GM/30 ML UDC PO SCH (21:00)
[2024-02-27 04:00] VITALS: BP 104/41; PULSE 66; RESP 20; TEMP 98; O2SAT 97
[2024-02-27 08:00] VITALS: BP 111/34; PULSE 65; RESP 18; RESP 20; TEMP 98; O2SAT 100; O2SAT 97
[2024-02-27 09:41] LABS: ANION GAP 8.7 (8-16); CALCIUM 7.4 mg/dL (8.5-10.1); CARBON DIOXIDE 28.4 mmol/L (21-32); CHLORIDE 110 mmol/L (98-107); CREATININE 0.8 mg/dL (0.6-1.3); GLUCOSE 91 mg/dL (74-106); POTASSIUM 3.1 mmol/L (3.5-5.1); SODIUM SERUM 144 mmol/L (136-145); UREA NITROGEN, BLOOD 12 mg/dL (7-18)
[2024-02-27 09:51] LABS: BASOPHILS % (AUTO) 0.7 % (0.0-2.0); EOSINOPHILS # (AUTO) 0.4 K/uL (0-0.4); EOSINOPHILS % (AUTO) 7.4 % (0.0-4.0); HEMATOCRIT 26.2 % (36-48); HEMOGLOBIN 8.7 g/dL (12.0-16.0); LYMPHOCYTES # (AUTO) 1.2 K/uL (2.5-16.5); LYMPHOCYTES % (AUTO) 20.3 % (20.5-51.1); MEAN CORPUSCULAR HEMOGLOBIN 37 pg (27-31); MEAN CORPUSCULAR HGB CONC 33 g/dL (33-37); MEAN CORPUSCULAR VOLUME 110.3 fL (80-94); MONOCYTES # (AUTO) 0.8 K/uL (0.8-1.0); MONOCYTES % (AUTO) 13.4 % (1.7-9.3); NEUTROPHILS # (AUTO) 3.4 K/uL (1.8-7.7); NEUTROPHILS % (AUTO) 58.2 % (42.2-75.2); PLATELET COUNT (AUTO) 90 K/uL (140-450); RED BLOOD CELL COUNT(AUTO) 2.38 MIL/uL (4.20-5.40); RED CELL DISTRIBUTION WIDTH 23.4 % (11.6-13.7); WHITE BLOOD COUNT (AUTO) 5.8 K/uL (4.8-10.8)
[2024-02-27 11:00] LABS: MAGNESIUM 1.8 mg/dL (1.8-2.4); PHOSPHORUS 2.8 mg/dL (2.5-4.9)
[2024-02-27 12:00] VITALS: BP 111/34; PULSE 65; RESP 20; TEMP 98; O2SAT 100
[2024-02-27] MEDS ORDERED: POTASSIUM CHLORIDE 10 MEQ TABER PO PRN (15:15)
[2024-02-27] MEDS ORDERED: MAG SULF 2000 MG/WATER PREMIX 50 ML IV PRN (15:15)
[2024-02-27 16:00] VITALS: BP 111/40; PULSE 64; PULSE 65; RESP 18; TEMP 98.9; O2SAT 100
[2024-02-27] MEDS: POTASSIUM CHLORIDE 40 MEQ, LIDOCAINE 1% 25 MG in NACL 0.9% 250 ML IV SCH (16:51)
[2024-02-27] MEDS: carvediloL 3.125 MG TAB PO ONE (16:52)
[2024-02-27 20:00] VITALS: BP 116/46; PULSE 68; RESP 18; RESP 20; TEMP 97.9; O2SAT 99
[2024-02-28 04:00] VITALS: BP 116/39; PULSE 66; RESP 20; TEMP 97.8; O2SAT 97
[2024-02-28 08:00] VITALS: BP 117/46; PULSE 68; PULSE 78; RESP 18; RESP 20; TEMP 97.9; O2SAT 99
[2024-02-28 08:22] LABS: BASOPHILS % (AUTO) 0.6 % (0.0-2.0); EOSINOPHILS # (AUTO) 0.3 K/uL (0-0.4); EOSINOPHILS % (AUTO) 4.3 % (0.0-4.0); HEMATOCRIT 27.3 % (36-48); HEMOGLOBIN 9.2 g/dL (12.0-16.0); LYMPHOCYTES # (AUTO) 1.5 K/uL (2.5-16.5); LYMPHOCYTES % (AUTO) 21.3 % (20.5-51.1); MEAN CORPUSCULAR HEMOGLOBIN 37 pg (27-31); MEAN CORPUSCULAR HGB CONC 34 g/dL (33-37); MEAN CORPUSCULAR VOLUME 109.3 fL (80-94); MONOCYTES # (AUTO) 0.9 K/uL (0.8-1.0); MONOCYTES % (AUTO) 12.9 % (1.7-9.3); NEUTROPHILS # (AUTO) 4.2 K/uL (1.8-7.7); NEUTROPHILS % (AUTO) 60.9 % (42.2-75.2); PLATELET COUNT (AUTO) 93 K/uL (140-450); RED BLOOD CELL COUNT(AUTO) 2.49 MIL/uL (4.20-5.40); RED CELL DISTRIBUTION WIDTH 22.5 % (11.6-13.7); WHITE BLOOD COUNT (AUTO) 6.9 K/uL (4.8-10.8)
[2024-02-28 08:35] LABS: CALCIUM 7.6 mg/dL (8.5-10.1); CARBON DIOXIDE 27.3 mmol/L (21-32); CHLORIDE 112 mmol/L (98-107); CREATININE 0.9 mg/dL (0.6-1.3); GLUCOSE 84 mg/dL (74-106); POTASSIUM 3.3 mmol/L (3.5-5.1); SODIUM SERUM 146 mmol/L (136-145); UREA NITROGEN, BLOOD 12 mg/dL (7-18)
[2024-02-28 08:40] LABS: MAGNESIUM 1.9 mg/dL (1.8-2.4); PHOSPHORUS 2.7 mg/dL (2.5-4.9)
[2024-02-28] MEDS: LOSARTAN 25 MG TAB PO SCH (09:00)
[2024-02-28] MEDS ORDERED: ATORVASTATIN 20 MG TAB PO SCH (09:00)
[2024-02-28] MEDS: carvediloL 3.125 MG TAB PO SCH (09:00)
[2024-02-28 12:00] VITALS: BP 117/46; PULSE 68; PULSE 78; RESP 20; TEMP 97.9; O2SAT 99
[2024-02-28] MEDS ORDERED: CARV3.122 PO (13:09)
[2024-02-28] MEDS ORDERED: SYN.1 PO (13:09)
[2024-02-28] MEDS ORDERED: LOSA-269 PO (13:09)
[2024-02-28] MEDS ORDERED: FURO-570 PO (13:09)
[2024-02-28] MEDS ORDERED: LACT10SO11 PO (13:09)
[2024-02-28 16:00] VITALS: BP 146/58; PULSE 68; PULSE 81; RESP 18; TEMP 98.7; O2SAT 96
[2024-02-28] MEDS ORDERED: ZOS3.375PM IV (16:50)
[2024-02-28] MEDS: POTASSIUM CHLORIDE 20% 40 MEQ/15 ML UDC PO ONE (17:06)
== END 2024-02-28 18:33 | DRG 871 ==
LOC: MED 15:39 → MTU 19:54
DX: A41.9 Sepsis, unspecified organism (principal); E43 Unspecified severe protein-calorie malnutrition; G93.41 Metabolic encephalopathy; J69.0 Pneumonitis due to inhalation of food and vomit; I50.43 Acute on chronic combined systolic (congestive) and diastolic (congestive) heart failure; N39.0 Urinary tract infection, site not specified; E87.20 Acidosis, unspecified; D63.8 Anemia in other chronic diseases classified elsewhere; N31.9 Neuromuscular dysfunction of bladder, unspecified; K76.82 Hepatic encephalopathy; K74.60 Unspecified cirrhosis of liver; K75.81 Nonalcoholic steatohepatitis (NASH); I11.0 Hypertensive heart disease with heart failure; E87.6 Hypokalemia; E66.9 Obesity, unspecified; E16.2 Hypoglycemia, unspecified; D69.6 Thrombocytopenia, unspecified; I70.0 Atherosclerosis of aorta; Z68.39 Body mass index [BMI] 39.0-39.9, adult; Z79.899 Other long term (current) drug therapy
CPT/HCPCS: 36415; 70450; 71045; 80048; 80053; 80076; 81001; 82140; 82150; 82550; 82948; 83036; 83605; 83690; 83735; 83880; 84100; 84439; 84443; 84484; 85025; 85610; 85730; 87040; 87081; 87086; 87186; 92526; 93005; 96374; 97112; 97163-GP; 99285; J1815; J1940; J2001; J2470; J2543; J3480; J7030; J7060; Q0092